=== PATIENT | female | born 1995 ===

== ENCOUNTER → 2016-12-09 | Outpatient (CLI) | payer OTHER ==
--- NOTE | 2016-12-09 16:57 | PCVCIMAG ---
APPROVED REPORT Study performed: 12/09/2016 14:04:12 EXAM: Comprehensive 2D, Doppler, and color-flow Echocardiogram Patient Location: Echo lab Status: routine BSA: 1.82 HR: 60 bpmBP: 122/70 mmHg Rhythm: NSR Other Information Study Quality: Good Indications Mumur, Dyspnea. 2D Dimensions LVEF(%): 70.06 (>50%) IVSd: 6.78 (7-11mm)LVOT Diam: 14.78 (18-24mm) LVDd: 47.11 mm PWd: 6.66 (7-11mm)Ascending Ao: 25.19 (22-36mm) LVDs: 28.48 (25-40mm) Left Atrium: 30.68 (27-40mm) Aortic Root: 23.65 mm Perkins's LVEF: 70.06 % Volumes Left Atrial Volume (Systole) Single Plane 4CH: 16.99 mLSingle Plane 2CH: 19.84 mL LA ESV Index: 12.00 mL/m2 Aortic Valve AoV Peak Mik.: 1.40 m/s AO Peak Gr.: 7.82 mmHgLVOT Max P.49 mmHg LVOT Max V: 1.06 m/s AIYANA Vmax: 1.30 cm2 Mitral Valve E/A Ratio: 2.8 MV Decel. Time: 212.78 ms MV E Max Mik.: 1.17 m/s MV A Mik.: 0.42 m/s IVRT: 86.51 ms Pulmonary Valve PV Peak Gr.: 3.55 mmHg Pulmonary Vein P Vein S: 0.74 m/sP Vein A: 0.24 m/s P Vein D: 0.69 m/sP Vein A Dur.: 83.0 msec P Vein S/D Ratio: 1.07 Tricuspid Valve TR Peak Mik.: 2.78 m/s TR Peak Gr.: 30.82 mmHg Left Ventricle The left ventricle is normal size. There is normal LV segmental wall motion. There is normal left ventricular wall thickness. Left ventricular systolic function is normal. The left ventricular ejection fraction is within the normal range. LVEF is 60-65%. The left ventricular diastolic function is normal. Right Ventricle The right ventricle is normal size. The right ventricular systolic function is normal. Atria The left atrium size is normal. The right atrium size is normal. Aortic Valve The aortic valve is normal in structure, probably trileaflet No aortic regurgitation is present. There is no aortic valvular stenosis. Mitral Valve The mitral valve is normal in structure. There is no mitral valve regurgitation noted. No evidence of mitral valve stenosis. Tricuspid Valve The tricuspid valve is normal in structure. Mild tricuspid regurgitation. Pulmonary artery pressure is 38mmhg. Pulmonic Valve The pulmonary valve is normal in structure. There is no pulmonic valvular regurgitation. Great Vessels The aortic root is normal in size. IVC is normal in size and collapses with >50% inspiration Pericardium There is no pericardial effusion. <Conclusion> Left ventricular systolic function is normal. LVEF is 60-65%. Normal LV segmental wall motion. Normal diastolic function Possible tiny amount of left to right shunting in the region of the membranous septum, poorly defined. Could be related to a restrictive, membranous VSD The aortic valve is normal in structure, probably trileaflet. No aortic regurgitation or stenosis The mitral valve is normal in structure. No mitral insufficiency Pulmonary artery pressure of 35mmHg There is no pericardial effusion.
== END | disposition home or self-care (01) ==
LOC: PCVCIMAG 14:07
PROVIDERS: ATTEND Internal Medicine Cardiovascular Disease
DX: I07.1 Rheumatic tricuspid insufficiency (principal); Q23.1 Congenital insufficiency of aortic valve; E78.5 Hyperlipidemia, unspecified; Z88.0 Allergy status to penicillin
CPT/HCPCS: 80061; 93005; 93306; G0463

== ENCOUNTER → 2016-12-17 | Outpatient (CLI) | payer OTHER ==
[~2016-12-17] MED LIST: BENZOCAINE ONE 20% MUCOSAL SPRAY.; IV NORMAL SALINE 500ML BAG 500 ML ONE; MIDAZOLAM HCL/PF 2 MG/2 ML VIAL. ONE; fentaNYL PF VIAL 100 MCG/2 ML VIAL ONE
--- NOTE | 2016-12-17 10:52 | PCVCIMAG ---
APPROVED REPORT Study performed: 12/17/2016 08:45:08 EXAM: Comprehensive 2D, Doppler, and color-flow Echocardiogram Patient Location: Echo lab Status: routine BSA: 1.82 HR: 75 bpmBP: 113/60 mmHg Rhythm: NSR Other Information Study Quality: Good Indications Dyspnea. Murmur Echo Enhancing Agent Agent(s) / Amount(s) Used: Agitated Saline cc Procedure After obtaining informed consent, patient underwent transesophageal echo in the [employer]. Type of Sedation : Conscious Sedation Versed (6mg) Transesophageal probe was inserted and advanced into esophagus without difficulty by Kentrell Moncada MD. Echo enhancement agent administered: Agitated Saline The IRVIN was performed without complications. Throughout the procedure, the blood pressure, pulse oximetry, cardiac rhythm, and rate were monitored. The patient tolerated the procedure without adverse effects. Recovery from conscious sedation was uneventful and vital signs were stable. Left Ventricle The left ventricle is normal size. There is normal LV segmental wall motion. There is normal left ventricular wall thickness. Left ventricular systolic function is normal. The left ventricular ejection fraction is within the normal range. LVEF is 60-65%. Right Ventricle The right ventricle is normal size. The right ventricular systolic function is normal. Atria The left atrium size is normal. No masses or clots in the left atrium or left atrial appendage No shunting by contrast bubble injection The right atrium size is normal. Aortic Valve The aortic valve is normal in structure, trileaflet No aortic regurgitation is present. There is no aortic valvular stenosis. Mitral Valve The mitral valve is normal in structure. Mild mitral valve regurgitation noted. No evidence of mitral valve stenosis. Tricuspid Valve Mild tricuspid valve prolapse Mild tricuspid regurgitation. Pulmonic Valve The pulmonary valve is normal in structure. There is no pulmonic valvular regurgitation. Great Vessels The aortic root is normal in size. Pericardium There is no pericardial effusion. <Conclusion> Left ventricular systolic function is normal. There is normal LV segmental wall motion. LVEF 60-65%. The left atrium size is normal. No masses or clots in the left atrium or left atrial appendage No shunting by contrast bubble injection The aortic valve is normal in structure, trileaflet. No aortic regurgitation or stenosis The mitral valve is normal in structure. Mild mitral valve regurgitation noted. Mild tricuspid valve prolapse. Mild tricuspid regurgitation. Aorta normal throughout its course. There is no pericardial effusion.
== END | disposition home or self-care (01) ==
LOC: PCVCINTER 09:12
PROVIDERS: ATTEND Internal Medicine
DX: I08.1 Rheumatic disorders of both mitral and tricuspid valves (principal)
CPT/HCPCS: 93312; 93325; J2250; J3010; J7040